=== PATIENT | male | born 1980 | race African-American/Black ===

== ENCOUNTER 2021-02-24 19:43 | Emergency (ER) | payer BC ==
[~2021-02-24] VITALS: Ht 195.6 cm; Wt 141.1 kg
[2021-02-25] MEDS ORDERED: MUCINEX DM ER1 EAC1 PO (00:31)
[2021-02-25] MEDS ORDERED: AZITHROMYCIN500 MG PO (00:31)
== END 2021-02-25 00:51 | disposition home or self-care (01) ==
LOC: ER 19:43
DX: B34.9 Viral infection, unspecified (principal); J02.9 Acute pharyngitis, unspecified; R09.89 Other specified symptoms and signs involving the circulatory and respiratory systems; R05 Cough; Z03.818 Encounter for observation for suspected exposure to other biological agents ruled out